=== PATIENT | female | born 1990 | race Caucasian/White ===

== ENCOUNTER 2017-04-06 17:45 | Emergency (ER) | payer OTHER ==
--- NOTE | 2017-04-06 17:53 | ED Physician Documentation ---
General Adult - HISTORIAN Historian: patient - PAST HX Allergies/Adverse Reactions: Allergies Allergy/AdvReac Type Severity Reaction Status Date / Time No Known Allergies Allergy Verified 04/06/17 18:02 Home Medications: Ambulatory Orders Medication Instructions Recorded Sulfamethoxazole/Trimethoprim 1 each PO BID #20 tablet 04/06/17 [Bactrim Ds] - VITAL SIGNS Vital Signs: Vital Signs Temp Pulse Resp BP Pulse Ox 110/68 08/10/14 04:56 Discharge Clincal Impression: Cat bite Prescriptions: Sulfamethoxazole/Trimethoprim [Bactrim Ds] 1 each PO BID #20 tablet Referrals: Erik Keith MD [Primary Care Provider] - 2 Days Additional Instructions: Did discuss case with Dr P[place] He discussed the low chance this was an issue however she could come to the ER there if she wanted evaluation She states she will discuss this with Dr Keith in AM Condition: Stable Disposition: 01 HOME, SELF-CARE Decision to Admit: NO Date of Decison to Admit: 04/06/17 Decision Time: 18:15
[2017-04-06 18:06] VITALS: BP 121/80
[2017-04-06] MEDS ORDERED: DIPH,PERTUSS(ACELL),TET VAC/PF 0.5 ML DISP.SYRIN IM ONE ×2 (18:17→18:18)
== END 2017-04-06 18:30 | disposition home or self-care (01) ==
LOC: ED 17:45
DX: Z53.21 Procedure and treatment not carried out due to patient leaving prior to being seen by health care provider (principal)
CPT/HCPCS: 90471; 90715; 99281